=== PATIENT | female | born 1950 | race Caucasian/White ===

== ENCOUNTER 2017-09-05 08:01 | Day surgery (SDC) | payer MEDICARE, BC ==
[~2017-09-05] VITALS: Ht 162.6 cm; Wt 82.5 kg
[~2017-09-05 08:01] MED LIST: ATOR10; CARB200 PO; Dyazide 37.5-21 EACH PO; Prilosec Otc20 MG PO
== END 2017-09-05 10:15 | disposition home or self-care (01) ==
LOC: ORSCMMR 08:01 → ORD 09:00 → ORSCMMR 10:15
PROVIDERS: Internal Medicine Gastroenterology
PROC: 0DBN8ZX Excision of Sigmoid Colon, Via Natural or Artificial Opening Endoscopic, Diagnostic (ICD-10-PCS; principal; 2017-09-05 09:00)
PROC: 0DBH8ZX Excision of Cecum, Via Natural or Artificial Opening Endoscopic, Diagnostic (ICD-10-PCS; principal; 2017-09-05 09:00)
DX: Z12.11 Encounter for screening for malignant neoplasm of colon (principal); K63.5 Polyp of colon; D12.0 Benign neoplasm of cecum; K64.8 Other hemorrhoids; Z86.010 Personal history of colon polyps; Z80.0 Family history of malignant neoplasm of digestive organs; G40.909 Epilepsy, unspecified, not intractable, without status epilepticus; Z79.899 Other long term (current) drug therapy; I10 Essential (primary) hypertension; K21.9 Gastro-esophageal reflux disease without esophagitis; E78.00 Pure hypercholesterolemia, unspecified
CPT/HCPCS: 88305; J7120

== ENCOUNTER 2019-05-21 07:08 | Day surgery (SDC) | payer MEDICARE, BC ==
[~2019-05-21] VITALS: Ht 158 cm; Wt 75.0 kg
--- NOTE | 2019-05-21 08:11 | NUR ---
05/21/19 0811 JOEL GUO History, Chart, Medications and Allergies reviewed before start of procedure.O2 VIA N/C INTACT THROUGHOUT SEDATION/PROCEDURE. 3-LEAD EKG REVIEWED WITH PHYSICIAN PRIOR TO START OF PROCEDURE.MONITOR INTACT WITH CONTINUOUS PULSE OXIMETRY AND INTERMITTENT BP.PATIENT DETERMINED TO BE ASA APPROPRIATE FOR PROPOFOL SEDATION PRIOR TO START OF PROCEDURE BY .
== END 2019-05-21 09:18 | disposition home or self-care (01) ==
LOC: ORSCMMR 07:08 → ORD 08:00 → ORSCMMR 09:18
PROVIDERS: Internal Medicine Gastroenterology
PROC: 0DB68ZX Excision of Stomach, Via Natural or Artificial Opening Endoscopic, Diagnostic (ICD-10-PCS; principal; 2019-05-21 08:00)
PROC: 0DB48ZX Excision of Esophagogastric Junction, Via Natural or Artificial Opening Endoscopic, Diagnostic (ICD-10-PCS; principal; 2019-05-21 08:00)
PROC: 0DB58ZX Excision of Esophagus, Via Natural or Artificial Opening Endoscopic, Diagnostic (ICD-10-PCS; principal; 2019-05-21 08:00)
PROC: 0D758ZZ Dilation of Esophagus, Via Natural or Artificial Opening Endoscopic (ICD-10-PCS; principal; 2019-05-21 08:00)
DX: R13.14 Dysphagia, pharyngoesophageal phase (principal); K21.9 Gastro-esophageal reflux disease without esophagitis; K44.9 Diaphragmatic hernia without obstruction or gangrene; G40.909 Epilepsy, unspecified, not intractable, without status epilepticus; Z79.899 Other long term (current) drug therapy
CPT/HCPCS: 88305; 88312; 88342; C1726; J2250; J2704; J7120

== ENCOUNTER → 2023-10-01 | Outpatient (CLI) | payer MEDICARE, BC ==
[2023-10-01 15:16] LABS: Albumin, Blood 3.3 g/dL (3.4-5.0); Bilirubin, Total 0.5 mg/dL (0.1-1.0); Bun/Creatinine Ratio 16.1 (12.0-20.0); Creatinine, Blood 0.99 mg/dL (0.40-1.00); Globulin, Blood 3.3 g/dL (2.2-4.0); Potassium, Blood 3.8 mmol/L (3.5-5.5); Total Protein, Blood 6.6 g/dL (6.4-8.2)
== END | disposition home or self-care (01) ==
LOC: LAB SHORT 10:33 → LAB 10:33
PROVIDERS: Physician Assistant
DX: I10 Essential (primary) hypertension (principal)
CPT/HCPCS: 36415; 80053

== ENCOUNTER 2023-12-03 09:57 | Day surgery (SDC) | payer MEDICARE, BC ==
[~2023-12-03] VITALS: Ht 157.5 cm; Wt 59.9 kg
[~2023-12-03 09:57] MED LIST changes: +AMOCLA875 PO; -ATOR10; +ATOR10 PO; -CARB200 PO; +CARBATROL PO; +CARBATROL300 M1 PO; +K-TAB ER20 ME1 PO; +Lactated Ringer's 1,000 ML IV ONE; +Norco 5-325 Ta1 EACH PO; +OMEP20ER PO; +Tessalon200 MG PO; +Zithromax500 MG PO; +propofoL 50 ML IV ONE
[2023-12-03] MEDS ORDERED: DYAZIDE 37.5-21 EACH (10:54)
[2023-12-03] MEDS ORDERED: CALCIUM 500 MG1 EAC8 (10:59)
[2023-12-03] MEDS ORDERED: Lactated Ringer's 1,000 ML IV ONE (11:22)
[2023-12-03 12:58] VITALS: BP 120/86
== END 2023-12-03 12:59 | disposition home or self-care (01) ==
LOC: ORSCSDS 09:57
PROVIDERS: Internal Medicine Gastroenterology
PROC: 0DJD8ZZ Inspection of Lower Intestinal Tract, Via Natural or Artificial Opening Endoscopic (ICD-10-PCS; principal; 2023-12-03 11:15)
PROC: 0D758ZZ Dilation of Esophagus, Via Natural or Artificial Opening Endoscopic (ICD-10-PCS; principal; 2023-12-03 11:15)
DX: K21.9 Gastro-esophageal reflux disease without esophagitis (principal); R13.10 Dysphagia, unspecified; Z86.010 Personal history of colon polyps; Z80.0 Family history of malignant neoplasm of digestive organs; K22.5 Diverticulum of esophagus, acquired; K22.2 Esophageal obstruction; K44.9 Diaphragmatic hernia without obstruction or gangrene; Z86.16 Personal history of COVID-19; E78.5 Hyperlipidemia, unspecified; I10 Essential (primary) hypertension; G40.909 Epilepsy, unspecified, not intractable, without status epilepticus; Z79.899 Other long term (current) drug therapy
CPT/HCPCS: C1726; J2704; J7120

== ENCOUNTER 2024-07-19 14:50 | Emergency (ER) | payer MEDICARE, BC ==
[~2024-07-19] VITALS: Ht 162.6 cm; Wt 60.3 kg
[~2024-07-19 14:50] MED LIST changes: +CALCIUM 500 MG1 EAC8; +DYAZIDE 37.5-21 EACH; -Lactated Ringer's 1,000 ML IV ONE; -propofoL 50 ML IV ONE
[2024-07-19 15:12] VITALS: BP 131/94
[2024-07-19 16:00] LABS: Influenza A, PCR NEGATIVE (NEGATIVE); Influenza B, PCR NEGATIVE (NEGATIVE); Resp Syncytial Virus, PCR NEGATIVE (NEGATIVE); SARS-Cov-2 (COVID-19) PCR, MMC NEGATIVE (NEGATIVE)
[2024-07-19 16:55] LABS: BASOPHILS ABSOLUTE AUTO 0.03 K/mm3 (0.00-0.23); BASOPHILS PERCENT AUTO 0 % (0-2); EOSINOPHILS ABSOLUTE AUTO 0.04 K/mm3 (0.00-0.68); EOSINOPHILS PERCENT AUTO 1 % (0-6); Hematocrit 41.4 % (33.0-51.0); Hemoglobin 14.8 g/dL (11.5-16.0); IMMATURE GRAN ABSOLUTE AUTO 0.03 K/mm3 (0.00-0.10); IMMATURE GRAN PERCENT AUTO 0 % (0-1); LYMPHOCYTES ABSOLUTE AUTO 0.49 K/mm3 (0.84-5.20); LYMPHOCYTES PERCENT AUTO 7 % (21-46); MONOCYTES ABSOLUTE AUTO 0.49 K/mm3 (0.16-1.47); MONOCYTES PERCENT AUTO 7 % (4-13); Mean Corpuscular HGB 32.5 pg (26.0-34.0); Mean Corpuscular HGB Conc 35.7 g/dL (31.5-36.5); Mean Corpuscular Volume 91 fL (80-100); Mean Platelet Volume 9.6 fL (9.1-12.4); NEUTROPHILS ABSOLUTE AUTO 6.31 K/mm3 (1.96-9.15); NEUTROPHILS PERCENT AUTO 86 % (41-73); Platelet Count 204 K/mm3 (150-400); RDW Standard Deviation 43.1 fL (35.1-46.3); Red Blood Cell Count 4.56 M/mm3 (3.80-5.20); White Blood Cell Count 7.39 K/mm3 (4.00-11.30)
[2024-07-19 17:35] LABS: Albumin, Blood 3.3 g/dL (3.4-5.0); Albumin/Globulin Ratio 0.9 (0.8-1.8); Bilirubin, Total 0.5 mg/dL (0.1-1.0); Bun/Creatinine Ratio 12.3 (12.0-20.0); Creatinine, Blood 0.89 mg/dL (0.40-1.00); Globulin, Blood 3.6 g/dL (2.2-4.0); Potassium, Blood 3.2 mmol/L (3.5-5.5); Total Protein, Blood 6.9 g/dL (6.4-8.2)
== END 2024-07-19 18:01 | disposition home or self-care (01) ==
LOC: ER 14:50
PROVIDERS: Physician Assistant
DX: J06.9 Acute upper respiratory infection, unspecified (principal); Z88.5 Allergy status to narcotic agent; Z88.1 Allergy status to other antibiotic agents; Z79.899 Other long term (current) drug therapy
CPT/HCPCS: 0241U; 71046; 80053; 85025; 99285-25